=== PATIENT | female | born 1990 | race African-American/Black ===

== ENCOUNTER 2018-12-05 09:19 | Emergency (ER) | payer MEDICAID ==
[~2018-12-05] VITALS: Ht 160 cm; Wt 102.0 kg
[2018-12-05 09:23] VITALS: BP 154/86
== END 2018-12-05 09:49 | disposition left against medical advice (07) ==
LOC: ER 09:33
DX: Z53.21 Procedure and treatment not carried out due to patient leaving prior to being seen by health care provider (principal)

== ENCOUNTER 2019-08-13 20:03 | Emergency (ER) | payer MEDICAID ==
[~2019-08-13] VITALS: Ht 165.1 cm; Wt 104.0 kg
[2019-08-13] MEDS ORDERED: ALBUTEROL (0.083%) 2.5MG/3ML NEB HHN STA (20:12)
[2019-08-13] MEDS ORDERED: IPRATROPIUM BROMIDE (0.02%) 0.5MG/2.5ML NEB HHN STA (20:12)
[2019-08-13] MEDS ORDERED: PREDNISONE 20MG TABLET PO ONE (20:15)
[2019-08-13] MEDS ORDERED: VISCOUS LIDOCAINE 2% 15 ML UDC PO ONE (20:45)
[2019-08-13] MEDS ORDERED: MAGNESIUM/ALUMINUM HYDROXIDE/SIMETHICONE 30ML UDC PO ONE (20:45)
[2019-08-13 23:31] VITALS: BP 123/82
== END 2019-08-13 23:31 | disposition home or self-care (01) ==
LOC: ER 20:03
DX: J45.909 Unspecified asthma, uncomplicated (principal); R07.89 Other chest pain
CPT/HCPCS: 36415; 84484; 93005; 94640; 99284; J7512; J7611; Z7610